=== PATIENT | female | born 1950 | race Caucasian/White ===

== ENCOUNTER 2017-05-22 10:03 | Outpatient (CLI) | payer MEDICARE, BC | END 2017-05-22 10:04 | disposition home or self-care (01) | LOC: BICMAMMO 10:03 | PROVIDERS: ATTEND Internal Medicine | DX: Z12.31 Encounter for screening mammogram for malignant neoplasm of breast (principal); N28.9 Disorder of kidney and ureter, unspecified; J98.4 Other disorders of lung; R93.5 Abnormal findings on diagnostic imaging of other abdominal regions, including retroperitoneum; Z80.3 Family history of malignant neoplasm of breast | CPT/HCPCS: 71046; 76770; 77063; 77067 ==

== ENCOUNTER 2020-06-22 15:55 | Outpatient (CLI) | payer MEDICARE, BC ==
[2020-06-22 19:12] LABS: ALT (SGPT) 15 U/L (8-55); AST (SGOT) 19 U/L (5-34); Albumin 4.4 g/dL (3.4-4.8); Alkaline Phosphatase 87 U/L (40-110); Anion Gap 14 mmol/L (10-20); BUN (Urea Nitrogen) 16 mg/dL (9.8-20.1); Bilirubin, Direct 0.1 mg/dL (0.1-0.3); Bilirubin, Total 0.3 mg/dL (0.2-1.2); Calc. Creatinine Clearance 0 mL/min (70-130); Calcium 10.3 mg/dL (7.8-10.44); Carbon Dioxide 26 mmol/L (23-31); Chloride 107 mmol/L (98-107); Glucose 74 mg/dL (80-115); Hemoglobin 12.5 g/dL (12.0-15.5); Lipase 59 U/L (8-78); Mean Corpuscular HGB CONC 32.6 g/dL (32.0-36.0); Mean Corpuscular Hemoglobin 29.3 pg (27.0-33.0); Mean Corpuscular Volume 89.7 fl (81.6-98.3); Mean Platelet Volume 10.5 fl (7.4-10.4); Platelet Count 189 10x3/uL (150-450); Potassium 4.6 mmol/L (3.5-5.1); Protein, Total 6.8 g/dL (5.8-8.1); RBC Distribution Width 13.5 % (11.5-14.5); Red Blood Cell (RBC) Count 4.27 10x6/uL (3.90-5.03); Sodium 142 mmol/L (136-145); White Blood Cell (WBC) Count 6.3 10x3/uL (3.5-10.5)
[2020-06-23 06:51] LABS: SARS-CoV-2 PCR by NAA Not Detected (NotDetected)
== END 2020-06-22 15:56 | disposition home or self-care (01) ==
LOC: LABBT 15:55
PROVIDERS: ATTEND Surgery
DX: Z01.818 Encounter for other preprocedural examination (principal); Z20.822 Contact with and (suspected) exposure to COVID-19
CPT/HCPCS: 80048; 80076; 83690; 85027; U0003; U0005; 87635; 93005; 93010

== ENCOUNTER 2020-06-25 10:01 | Day surgery (SDC) | payer MEDICARE, BC ==
[2020-06-24 09:59] VITALS: BMI 29.1
[2020-06-25] MEDS ORDERED: Fentanyl 100 MCG/2 ML VIAL ONE ×3 (10:31→13:32)
[2020-06-25] MEDS ORDERED: Bupivacaine 0.25% HCL 30 ML VIAL ONE (11:48)
[2020-06-25] MEDS ORDERED: Lidocaine 1% w/Epinephrine 1:100K 20 ML VIAL ONE (11:48)
[2020-06-25] MEDS ORDERED: Iothalamate Meglumine 60% 50 ML VIAL FS ONE (11:48)
[2020-06-25] MEDS ORDERED: PROPOFOL 200 MG/20 ML VIAL ONE (12:12)
[2020-06-25] MEDS ORDERED: Labetalol HCl 100 MG/20 ML VIAL ONE (12:12)
[2020-06-25] MEDS ORDERED: Glycopyrrolate 0.2 MG/ML 5 ML SYRINGE ONE (12:12)
[2020-06-25] MEDS ORDERED: Ondansetron PF 4 MG/2 ML Vial ONE ×2 (12:12→13:32)
[2020-06-25] MEDS ORDERED: Rocuronium Bromide 10 MG/ML (10ML VIAL) ONE (12:12)
[2020-06-25] MEDS ORDERED: Dexamethasone 20 MG/5 ML VIAL ONE (12:12)
[2020-06-25] MEDS ORDERED: Lidocaine 1% PF 5 ML VIAL ONE (12:12)
[2020-06-25] MEDS ORDERED: Promethazine HCl 25 MG/ML VIAL ONE ×2 (13:39→14:47)
[2020-06-25] MEDS ORDERED: HYDROcodone/Acetaminophen 5/325 mg Tablet ONE (14:33)
== END 2020-06-25 15:40 | disposition home or self-care (01) ==
LOC: SDC 10:01
PROVIDERS: ATTEND Surgery
PROC: 0FT44ZZ Resection of Gallbladder, Percutaneous Endoscopic Approach (ICD-10-PCS; principal; 2020-06-25)
PROC: BF101ZZ Fluoroscopy of Bile Ducts using Low Osmolar Contrast (ICD-10-PCS; 2020-06-25)
DX: K80.12 Calculus of gallbladder with acute and chronic cholecystitis without obstruction (principal); K21.9 Gastro-esophageal reflux disease without esophagitis; I10 Essential (primary) hypertension; Z79.82 Long term (current) use of aspirin; Z79.899 Other long term (current) drug therapy; Z88.8 Allergy status to other drugs, medicaments and biological substances; Z91.048 Other nonmedicinal substance allergy status
CPT/HCPCS: 47532; 47563; 88304; Q9961; J0690; J1100; J1610; J2405; J2550; J2704; J3010; S0020

== ENCOUNTER 2024-03-07 10:13 | Outpatient (CLI) | payer MEDICARE, BC ==
[2024-03-07] MEDS ORDERED: Barium Sulfate 96% 176 GM BOT (xray ONLY) ONE (10:28)
[2024-03-07] MEDS ORDERED: E-Z-HD 98% W/W 340GM BOT (x-ray ONLY) ONE (10:28)
== END 2024-03-07 10:14 | disposition home or self-care (01) ==
LOC: RAD 10:13
PROVIDERS: ATTEND Surgery
DX: K44.9 Diaphragmatic hernia without obstruction or gangrene (principal)
CPT/HCPCS: 74220

== ENCOUNTER 2024-03-11 14:06 | Outpatient (CLI) | payer MEDICARE, BC ==
[2024-03-11 15:27] LABS: #Basophils 0.03 10x3/uL (0.0-0.2); %Basophils 0.5 % (0.0-1.0); %Eosinophils 1.7 % (0.0-10.0); %Lymphocytes 25.5 % (21.0-51.0); %Monocytes 7.8 % (0.0-10.0); %Neutrophils 64.2 % (42.0-75.0); Hematocrit 37.6 % (36.0-47.0); Hemoglobin 12.4 g/dL (12.0-16.0); Mean Corpuscular Hemoglobin 29.7 pg (27.0-31.0); Mean Corpuscular Volume 90.2 fL (78.0-98.0); Mean Platelet Volume 9.5 fL (7.4-10.4); Platelet Count 180 10x3/uL (130-400); RBC Distribution Width 13.1 % (11.5-14.5); Red Blood Cell (RBC) Count 4.17 mill/uL (4.20-5.40)
[2024-03-11 15:43] LABS: Anion Gap 10 mmol/L (10-20); BUN (Urea Nitrogen) 14 mg/dL (9.8-20.1); Calc. Creatinine Clearance 0 mL/min (70-130); Calcium 9.8 mg/dL (7.8-10.44); Carbon Dioxide 24 mmol/L (23-31); Chloride 110 mmol/L (98-107); Estimated GFR 80; Glucose 133 mg/dL (83-110); Potassium 3.4 mmol/L (3.5-5.1); Sodium 141 mmol/L (136-145)
== END 2024-03-11 14:07 | disposition home or self-care (01) ==
LOC: LABBT 14:06
PROVIDERS: ATTEND Surgery
DX: Z01.818 Encounter for other preprocedural examination (principal); K44.9 Diaphragmatic hernia without obstruction or gangrene
CPT/HCPCS: 80048; 85025; 93005; 93010

== ENCOUNTER 2024-03-18 07:16 | Observation (INO) | payer MEDICARE, BC ==
[2024-03-11 14:37] VITALS: BMI 29.9
[2024-03-18] MEDS ORDERED: Lidocaine 1% PF 5 ML VIAL ONE (08:27)
[2024-03-18] MEDS ORDERED: PROPOFOL 20 ML ONE (08:27)
[2024-03-18] MEDS ORDERED: fentaNYL PF 100 MCG/2 ML SYRINGE ONE ×2 (08:27→10:49)
[2024-03-18] MEDS ORDERED: Scopolamine 1 mg/72 hour Patch ONE (08:36)
[2024-03-18] MEDS ORDERED: SUGAMMADEX SODIUM 200 MG/2 ML VIAL ONE (09:28)
[2024-03-18] MEDS ORDERED: Bupivacaine 0.25% HCL 30 ML VIAL ONE (09:50)
[2024-03-18] MEDS ORDERED: EPINEPHrine 1 MG/ML VIAL ONE (09:50)
[2024-03-18] MEDS ORDERED: CEFAZOLIN 2 GM VIAL ONE (10:05)
[2024-03-18] MEDS ORDERED: Midazolam HCl 2 mg/2 ml Vial ONE (10:11)
[2024-03-18] MEDS ORDERED: PHENYLEPHRINE-NS 100 MCG/ML 10 ML SYRINGE ONE (10:21)
[2024-03-18] MEDS ORDERED: Rocuronium Bromide 10 MG/ML (10ML VIAL) ONE (10:21)
[2024-03-18] MEDS ORDERED: Ondansetron PF 4 MG/2 ML Vial ONE (10:46)
[2024-03-18] MEDS ORDERED: Dexamethasone 20 MG/5 ML VIAL ONE (10:46)
[2024-03-18] MEDS ORDERED: hydrALAZINE 20 MG/ML VIAL ONE (12:11)
[2024-03-18] MEDS ORDERED: fentaNYL 50 mcg/mL 1 mL Vial ONE (12:12)
[2024-03-18] MEDS ORDERED: hydrALAZINE 20 MG/ML VIAL SLOW IVP PRN (14:21)
[2024-03-18] MEDS ORDERED: Dextrose 5% in Water 1,000 ML IV PRN (14:21)
[2024-03-18] MEDS ORDERED: Morphine 4 MG/ML VIAL SLOW IVP PRN (14:21)
[2024-03-18] MEDS ORDERED: Glucagon 1 MG/ML KIT IM PRN (14:21)
[2024-03-18] MEDS ORDERED: Dextrose 50% Abboject 50 ML SYRINGE SLOW IVP PRN (14:21)
[2024-03-18] MEDS ORDERED: Promethazine HCl 25 MG/ML VIAL IM PRN (14:21)
[2024-03-18] MEDS ORDERED: Ipratropium/Albuterol 3 ML NEB NEB PRN (14:21)
[2024-03-18] MEDS ORDERED: Ondansetron PF 4 MG/2 ML Vial IVP PRN (14:21)
[2024-03-18] MEDS ORDERED: Naloxone HCl 0.4 mg/ml Vial IVP PRN (14:21)
[2024-03-18] MEDS: Acetaminophen 325 MG TAB PO SCH (14:49)
[2024-03-18] MEDS: traMADol HCl 50 MG TAB PO PRN (15:56)
[2024-03-18] MEDS: D5 1/2 NS w/20 mEq KCL 1,000 ML IV SCH (16:09)
[2024-03-19 05:31] LABS: #Basophils Less than 0.03 10x3/uL (0.0-0.2); #Eosinophils Less than 0.03 10x3/uL (0.0-0.7); %Basophils 0.1 % (0.0-1.0); %Lymphocytes 9.5 % (21.0-51.0); Hematocrit 35.2 % (36.0-47.0); Hemoglobin 11.7 g/dL (12.0-16.0); Mean Corpuscular HGB CONC 33.2 g/dL (32.0-36.0); Mean Corpuscular Hemoglobin 29.7 pg (27.0-31.0); Mean Corpuscular Volume 89.3 fL (78.0-98.0); Mean Platelet Volume 9.2 fL (7.4-10.4); Platelet Count 151 10x3/uL (130-400); RBC Distribution Width 13.1 % (11.5-14.5); Red Blood Cell (RBC) Count 3.94 mill/uL (4.20-5.40)
[2024-03-19] MEDS: Pantoprazole 40 MG VIAL IVP SCH (08:43)
[2024-03-19] MEDS ORDERED: PENTOSAN POLYSULFATE SODIUM 100 MG PO SCH (09:00)
[2024-03-19 09:04] VITALS: BP 130/79; TEMP 98
== END 2024-03-19 09:48 | disposition home or self-care (01) ==
LOC: SDC 07:16 → SURG B 12:31 → INTOOBSV 12:31
PROVIDERS: ADMIT Surgery; ATTEND Surgery
PROC: 0BQT4ZZ Repair Diaphragm, Percutaneous Endoscopic Approach (ICD-10-PCS; principal; 2024-03-18)
DX: K44.9 Diaphragmatic hernia without obstruction or gangrene (principal); K21.9 Gastro-esophageal reflux disease without esophagitis; I10 Essential (primary) hypertension; Z90.89 Acquired absence of other organs; Z90.49 Acquired absence of other specified parts of digestive tract; Z98.890 Other specified postprocedural states; Z88.8 Allergy status to other drugs, medicaments and biological substances; Z91.048 Other nonmedicinal substance allergy status; Z79.82 Long term (current) use of aspirin; Z79.899 Other long term (current) drug therapy
CPT/HCPCS: 43281; 85025; C1889; J0171; J0360; J0665; J1100; J2250; J2405; J2470; J2704; J3010; J3480; J7042; S2900; 36415